=== PATIENT | female | born 1945 | race Caucasian/White ===

== ENCOUNTER 2022-03-14 13:35 | Outpatient (REF) | payer MEDICARE, SELFPAY ==
[2022-03-15 13:09] LABS: Influenza A PCR NEGATIVE (Negative); Influenza B PCR NEGATIVE (Negative); Resp Syncy Virus RNA Qual PCR NEGATIVE (Negative); SARS COV2 PCR INHOUSE NEGATIVE (Negative)
== END 2022-03-14 13:36 | disposition home or self-care (01) ==
LOC: HO.LNP 13:35
PROVIDERS: Visit Provider Hospitalist
DX: J02.9 Acute pharyngitis, unspecified (principal); R09.81 Nasal congestion; R51.9 Headache, unspecified; R05.9 Cough, unspecified; Z20.822 Contact with and (suspected) exposure to COVID-19
CPT/HCPCS: 0241U

== ENCOUNTER 2024-02-13 15:23 | Outpatient (AMB) | payer MEDICARE, SELFPAY ==
--- NOTE | 2024-02-13 15:13 | MHC.PC.OV ---
Vital Signs 02/13/24 15:45 Height 5 ft 1 in Weight 148 lb 6 oz BMI 28.0 BP 112/60 Blood Pressure Location Rt brachial Position Sitting Respiration 16 Pulse 99 Pulse Source Pulse Oximeter Temp 98.1 F Temp Source Oral Pulse Oximetry (%) 96 Oxygen Delivery Method Room Air Intake Visit Reasons: establish care Intake Note: New patient visit [facility] Required: No Allergies azithromycin Allergy (Intermediate, Verified 03/14/22 13:56) Swelling latex Allergy (Intermediate, Verified 03/14/22 13:55) Hives duloxetine [From Cymbalta] Allergy (Unknown, Verified 02/13/24 15:17) Unknown erythromycin base Allergy (Unknown, Verified 02/13/24 15:17) Unknown hydromorphone [From Dilaudid] Allergy (Unknown, Verified 02/13/24 15:17) Unknown Sulfa (Sulfonamide Antibiotics) Allergy (Unknown, Verified 02/13/24 15:17) Unknown nonsteriodal anti-inflammatory agents Allergy (Unknown, Uncoded 02/13/24 15:17) Unknown Medication List - Last Reconciled 02/13/24 by Jasmine Ye MD albuterol sulfate 90 mcg/actuation inhalation alprazolam 2 mg PO TID PRN ketoconazole 2% 1 appl topical neomycin-polymyxin B-dexameth 3.5mg/mL-10,000 unit/mL-0.1 % drps ophthalmic (eye) prednisolone acetate 1% 1 drp ophthalmic (eye) TID warfarin (Jantoven) mg PO Tobacco use date assessed: 02/13/24 Fall risk assessment: 2 + Falls in past year Last assessed Fall Risk: 02/13/24 Dental Screening Dental Screen Date: 02/13/24 Did you have a dental visit in the last 12 months?: No Did you have a dental problem in the last 6 months where you did not have access to dental care?: No Was dental information given to patient?: No (Has dentures) HPI HPI Comments History of Present Illness Details The patient is a 78 year old female with a past medical history of COPD, HLD, chronic pain, OA, DDD, fibromyalgia presenting for follow up Has had recurrent issues with bilateral ear pressure. Recurrent sinusitis. Uses claritin, nasal spray. Has seen ENT. Received allergy shots remotely. Not interested in pursuing. Normal sinus xray following treatment. Feels off balance OA, DDD, fibromyalgia: Basline. Left sided low back pain with radicular sympotms. Injections decrease pain levels. Intolerant to multiple medications. Has tried cymbalta, gabapentin, lyrica, NSAIDs. History of lumbar laminectomy~10 years ago. Improved for few years then last 3 years increased. Has seen rheumatology, ortho, NS. Saw [facility] for her knee. Receives injections ~2x/year. Saw in Sep 2023. Uses tylenol and topical lidocaine or bengay. Denies b/b incontinence, LE numbness, wekaness. Ongoing intermittent level left shoulder, neck, upper back and knee pain. history of left knee torn meniscus. Psych: Well controlled anxiety, depression. Follows with . Chronic fatigue. On clonazepam Heme/Onc h/o PE early , 2011. Lifelong AC with coumadin. Doesnt want NOAC. Chronically anemia. history of b12 deficiency. Recevies injections [facility] Medical History (Updated 02/19/24 @ 09:10 by Jasmine Ye MD) Vitamin D deficiency Thyroid function test abnormal Rosacea Pulmonary embolism Peripheral nerve disease Otalgia of right ear Osteoporosis Non-toxic multinodular goiter Irritable bowel syndrome Hypercholesteremia Gastroesophageal reflux disease Fibromyalgia Cobalamin deficiency Chronic pain Chronic obstructive lung disease Chronic anticoagulation Candidal intertrigo Asthma Arthritis Anxiety Allergic rhinitis Surgical History (Updated 02/13/24 @ 15:28 by Lavern Constantino CMA) H/O laminectomy History of ankle surgery Hx of appendectomy H/O laparoscopy Family History (Updated 02/13/24 @ 16:30 by Lavern Constantino CMA) Other FH: mental illness Social History Housing: Other (mobile home ) Patient Tobacco Use Status: Never used Tobacco e-Cigarette/Vaping Use: Never Used Cognitive needs: No Hearing needs: No Vision needs: Yes (issue with her eyes that's been unresolved) Questionnaire PHQ-9 Over the last 2 weeks, how often have you been bothered by any of the following problems? 1. Little interest or pleasure in doing things: more than half the days 2. Feeling down, depressed, or hopeless: more than half the days 3. Trouble falling or staying asleep, or sleeping too much: more than half the days 4. Feeling tired or having little energy: not at all 5. Poor appetite or overeating: not at all 6. Feeling bad about yourself - or that you are a failure or have let yourself or your family down: not at all 7. Trouble concentrating on things, such as reading the newspaper or watching television: not at all 8. Moving or speaking so slowly that other people could have noticed. Or the opposite - being so fidgety or restless that you have been moving around a lot more than usual: not at all 9. Thoughts that you would be better off or of hurting yourself in some way: not at all Total score: 6 Depression Screening Interpretation: Positive Depression Screening Follow-up: Existing condition Depression Screening Done: Yes 82804 - PHQ-9 Billing: Yes Source: Developed by Drs. Wesley Castillo, Gabby Cox, Joshua Perla and colleagues, with an educational shereen from [employer]. Thrive Questionnaire Date Thrive assessed: 02/13/24 I am a: Patient What is your living situation today?: I have a steady place to live Within the past 12 months, did the food you bought not last and you didn't have the money to get more?: Never true Within the past 12 months, did you worry whether your food would run out before you got money to buy more?: Never true Do you have trouble paying for medicines?: No Do you have trouble getting transportation to medical appointments?: No Do you have trouble paying your heating and electricity bill?: No Do you have trouble taking care of your child, family member or friend?: No Do you have trouble with day-to-day activities such as bathing, preparing meals, shopping, managing finances, etc.?: No Are you currently unemployed and looking for a job?: No Are you interested in more education?: No Please select the resources that you would like help with: None Currently or been in a relationship where the following occur: no concerns reported THRIVE Score: 0 FLORA-7 AMB Questionnaire FLORA-7 Date FLORA - 7 assessed: 02/13/24 Feeling nervous, anxious, or on edge: 0 = Not at all Not being able to stop or control worryin = Not at all Worrying too much about different things: 0 = Not at all Trouble relaxin = Not at all Being so restless that it is hard to sit still: 0 = Not at all Becoming easily annoyed or irritable: 0 = Not at all Feeling afraid as if something awful might happen: 0 = Not at all Total FLORA-7 score (0-4 normal; 5-9 mild; 10-14 moderate; 15-21 severe): 0 Source: Developed by Drs. Wesley Castillo, Gabby Cox, Joshua Perla and colleagues, with an educational shereen from [employer]. FLORA-7 Assessment Billing FLORA-7 Assessment Tool: FLORA-7 Assessment 89994 Review of Systems Const Details: see hpi Physical exam (Primary Care) Vital Signs: Last Vital Signs Temp 98.1 F 02/13/24 15:45 Pulse 99 02/13/24 15:45 Resp 16 02/13/24 15:45 BP 112/60 02/13/24 15:45 Pulse Ox 96 02/13/24 15:45 Oxygen Delivery Method Room Air 02/13/24 15:45 PHYSICAL EXAM: GENERAL: Alert and oriented x 3. NAD EYES: EOMI. Anicteric. HENT: Periorbital edema, boggy nasal mucosa. LUNGS: Clear to auscultation bilaterally. CARDIOVASCULAR: Regular rate and rhythm. No murmur. No JVD. ABDOMEN: Soft, non-tender +bs EXTREMITIES: No edema. Non-tender. SKIN: No rashes or lesions. Warm. NEUROLOGIC: No focal neurological deficits. CN II-XII grossly intact PSYCHIATRIC: Cooperative. Appropriate mood and affect BMI result Body Mass Index 28.0 Tobacco/Smoking Status: Tobacco use Status Tobacco use date assessed 02/13/24 02/13/24 15:51 Patient Tobacco Use Status Never used Tobacco 02/13/24 15:28 e-Cigarette/Vaping Use Never Used 02/13/24 15:51 PHQ-9: PHQ-9 Score PHQ-9: Total score 6 02/13/24 16:31 Depression Screening Interpretation: Positive Depression Screening Follow-up: Existing condition Thrive Assessment: Date of Thrive Assessment Date Thrive assessed 02/13/24 02/13/24 16:31 Currently or been in a relationship where the following occur: no concerns reported Assessment and Plan Assessment & Plan (1) Osteoarthritis: Comment: continue current medications Code(s): M19.90 - Unspecified osteoarthritis, unspecified site Qualifiers: Osteoarthritis location: multiple joints Osteoarthritis type: primary Qualified Code(s): M15.9 - Polyosteoarthritis, unspecified (2) Polyarthralgia: Code(s): M25.50 - Pain in unspecified joint (3) DDD (degenerative disc disease), lumbar: Comment: stable Code(s): M51.36 - Other intervertebral disc degeneration, lumbar region (4) Allergic rhinitis: Code(s): J30.9 - Allergic rhinitis, unspecified Qualifiers: Allergic rhinitis trigger: unspecified Allergic rhinitis seasonality: seasonal Qualified Code(s): J30.2 - Other seasonal allergic rhinitis Medications: New amoxicillin-pot clavulanate 875-125 mg 1 tab PO BID 14 days 28 tabs 0RF methylprednisolone PO PER PKG DIR for 6 days 21 ea 0RF Coding Level of Care Code Est Pt Level 5 (87523) Complex EM visit Add On G2211 Diagnoses Primary osteoarthritis involving multiple joints M15.9 Osteoarthritis location: multiple joints Osteoarthritis type: primary Polyarthralgia M25.50 DDD (degenerative disc disease), lumbar M51.36 Seasonal allergic rhinitis, unspecified trigger J30.2 Allergic rhinitis trigger: unspecified Allergic rhinitis seasonality: seasonal Additional Codes FLORA-7 Assessment Billing - FLORA-7 Assessment Tool: FLORA-7 Assessment 81252 ([id number])
[2024-02-13 15:45] VITALS: BP 112/60; PULSE 99; RESP 16; TEMP 36.7; O2SAT 96; BMI 28.0
== END 2024-02-13 16:26 | disposition home or self-care (01) ==
PROVIDERS: PCP Internal Medicine; Visit Provider Internal Medicine
DX: M15.9 Polyosteoarthritis, unspecified (principal); M25.50 Pain in unspecified joint; M51.36 Other intervertebral disc degeneration, lumbar region; J30.2 Other seasonal allergic rhinitis
CPT/HCPCS: 99214; G2211

== ENCOUNTER 2024-02-19 15:03 | Outpatient (AMB) | payer MEDICARE, SELFPAY ==
--- NOTE | 2024-02-19 15:04 | MHC.PC.OV ---
Vital Signs 02/19/24 15:07 Height 5 ft 1 in Weight 146 lb 6 oz BMI 27.7 BP 118/76 Blood Pressure Location Lt brachial Position Sitting Respiration 16 Pulse 87 Pulse Source Pulse Oximeter Pulse Oximetry (%) 98 Oxygen Delivery Method Room Air Intake Visit Reasons: f/u medication check up Intake Note: Follow up. Asking if she should still be on B12 injections. Allergies azithromycin Allergy (Intermediate, Verified 02/19/24 15:04) Swelling latex Allergy (Intermediate, Verified 03/14/22 13:55) Hives duloxetine [From Cymbalta] Allergy (Unknown, Verified 02/13/24 15:17) Unknown erythromycin base Allergy (Unknown, Verified 02/13/24 15:17) Unknown hydromorphone [From Dilaudid] Allergy (Unknown, Verified 02/13/24 15:17) Unknown Sulfa (Sulfonamide Antibiotics) Allergy (Unknown, Verified 02/13/24 15:17) Unknown nonsteriodal anti-inflammatory agents Allergy (Unknown, Uncoded 02/13/24 15:17) Unknown Medication List - Last Reconciled 02/19/24 by Jasmine Ye MD albuterol sulfate 90 mcg/actuation inhalation alprazolam 2 mg PO TID PRN amoxicillin-pot clavulanate 875-125 mg 1 tab PO BID 14 days ketotifen fumarate 0.025%(0.035%) (Allergy Eye (ketotifen)) 1 drp ophthalmic (eye) BID PRN 30 days methylprednisolone PO PER PKG DIR for 6 days warfarin (Jantoven) mg PO Tobacco use date assessed: 02/13/24 Fall risk assessment: No Falls in past year Last assessed Fall Risk: 02/19/24 Dental Screening Dental Screen Date: 02/13/24 HPI HPI Comments History of Present Illness Details The patient is a 78 year old female with a past medical history of COPD, HLD, chronic pain, OA, DDD, fibromyalgia presenting for follow up Has had recurrent issues with bilateral ear pressure. Recurrent sinusitis. Uses claritin, nasal spray. Has seen ENT. Received allergy shots remotely. Not interested in pursuing. Normal sinus xray following treatment. Feels off balance. Last visit was having issues with periorbital edema, eye itching watering and redness. One day left on solumedrol course with marked improvement in symptoms. Continues course of augmentin. OA, DDD, fibromyalgia: Basline. Left sided low back pain with radicular sympotms. Injections decrease pain levels. Intolerant to multiple medications. Has tried cymbalta, gabapentin, lyrica, NSAIDs. History of lumbar laminectomy~10 years ago. Improved for few years then last 3 years increased. Has seen rheumatology, ortho, NS. Saw [facility] for her knee. Receives injections ~2x/year. Saw in Sep 2023. Uses tylenol and topical lidocaine or bengay. Denies b/b incontinence, LE numbness, wekaness. Ongoing intermittent level left shoulder, neck, upper back and knee pain. history of left knee torn meniscus. Psych: Well controlled anxiety, depression. Follows with . Chronic fatigue. On clonazepam Heme/Onc h/o PE early , 2011. Lifelong AC with coumadin. Doesnt want NOAC. Chronically anemia. history of b12 deficiency. Recevies injections [facility] Medical History (Updated 02/21/24 @ 16:35 by Jasmine Ye MD) Vitamin D deficiency Thyroid function test abnormal Rosacea Pulmonary embolism Peripheral nerve disease Otalgia of right ear Osteoporosis Non-toxic multinodular goiter Irritable bowel syndrome Hypercholesteremia Gastroesophageal reflux disease Fibromyalgia Cobalamin deficiency Chronic pain Chronic obstructive lung disease Chronic anticoagulation Candidal intertrigo Asthma Arthritis Anxiety Allergic rhinitis Surgical History (Updated 02/13/24 @ 15:28 by Lavern Constantino CMA) H/O laminectomy History of ankle surgery Hx of appendectomy H/O laparoscopy Family History (Updated 02/13/24 @ 16:30 by Lavern Constantino CMA) Other FH: mental illness Social History Housing: Other (mobile home ) Patient Tobacco Use Status: Never used Tobacco e-Cigarette/Vaping Use: Never Used Cognitive needs: No Hearing needs: No Vision needs: Yes (issue with her eyes that's been unresolved) Questionnaire Thrive Questionnaire Date Thrive assessed: 02/13/24 FLORA-7 AMB Questionnaire FLORA-7 Date FLORA - 7 assessed: 02/13/24 Source: Developed by Drs. Wesley Castillo, Gabby Cox, Joshua Perla and colleagues, with an educational shereen from [employer]. Review of Systems Const Details: see hpi Physical exam (Primary Care) Vital Signs: Last Vital Signs Pulse 87 02/19/24 15:07 Resp 16 02/19/24 15:07 BP 118/76 02/19/24 15:07 Pulse Ox 98 02/19/24 15:07 Oxygen Delivery Method Room Air 02/19/24 15:07 PHYSICAL EXAM: GENERAL: Alert and oriented x 3. NAD EYES: EOMI. Anicteric. HENT: Moist mucous membranes. No scleral icterus. No cervical lymphadenopathy. LUNGS: Clear to auscultation bilaterally. CARDIOVASCULAR: Regular rate and rhythm. No murmur. No JVD. ABDOMEN: Soft, non-tender +bs EXTREMITIES: No edema. Non-tender. SKIN: No rashes or lesions. Warm. NEUROLOGIC: No focal neurological deficits. PSYCHIATRIC: Cooperative. Appropriate mood and affect BMI result Body Mass Index 27.7 Tobacco/Smoking Status: Tobacco use Status Tobacco use date assessed 02/13/24 02/19/24 15:04 Patient Tobacco Use Status Never used Tobacco 02/19/24 15:04 e-Cigarette/Vaping Use Never Used 02/19/24 15:04 Thrive Assessment: Date of Thrive Assessment Date Thrive assessed 02/13/24 02/19/24 15:04 Assessment and Plan Assessment & Plan (1) Cobalamin deficiency: Comment: check b12 prior to restarting injections Code(s): E53.8 - Deficiency of other specified B group vitamins (2) Thyroid function test abnormal: Code(s): R94.6 - Abnormal results of thyroid function studies (3) Hypercholesteremia: Code(s): E78.00 - Pure hypercholesterolemia, unspecified (4) Irritable bowel syndrome: Code(s): K58.9 - Irritable bowel syndrome without diarrhea (5) DDD (degenerative disc disease), lumbar: Comment: stable Code(s): M51.36 - Other intervertebral disc degeneration, lumbar region Orders: Orders Vitamin B12 02/19/24 E53.8 - Deficiency of other specified B group vitamins Medications: New ketotifen fumarate 0.025%(0.035%) (Allergy Eye (ketotifen)) administer at least 8 hours apart 1 drp ophthalmic (eye) BID 30 days PRN 5 mL 3RF allergy symptoms Coding Level of Care Code Tele Est Pt Level 3 (15095) Diagnoses Cobalamin deficiency E53.8 Thyroid function test abnormal R94.6 Hypercholesteremia E78.00 Irritable bowel syndrome K58.9 DDD (degenerative disc disease), lumbar M51.36
[2024-02-19 15:07] VITALS: BP 118/76; PULSE 87; RESP 16; O2SAT 98; BMI 27.7
== END 2024-02-19 15:57 | disposition home or self-care (01) ==
PROVIDERS: PCP Internal Medicine; Visit Provider Internal Medicine
DX: E53.8 Deficiency of other specified B group vitamins (principal); R94.6 Abnormal results of thyroid function studies; E78.00 Pure hypercholesterolemia, unspecified; K58.9 Irritable bowel syndrome, unspecified; M51.36 Other intervertebral disc degeneration, lumbar region
CPT/HCPCS: 99213

== ENCOUNTER 2024-03-19 14:18 | Outpatient (AMB) | payer MEDICARE, SELFPAY ==
--- NOTE | 2024-03-19 14:33 | A.OFFPC_ITS ---
Vital Signs 03/19/24 14:37 Height 5 ft 1 in Weight 144 lb 6 oz BMI 27.3 BP 132/72 Blood Pressure Location Lt brachial Position Sitting Respiration 14 Pulse 89 Pulse Source Pulse Oximeter Temp 98 F Temp Source Oral Pulse Oximetry (%) 97 Oxygen Delivery Method Room Air Intake Visit Reasons: possible infection Intake Note: F/U on sinus infection and allergies. Allergies azithromycin Allergy (Intermediate, Verified 02/19/24 15:04) Swelling latex Allergy (Intermediate, Verified 03/14/22 13:55) Hives duloxetine [From Cymbalta] Allergy (Unknown, Verified 02/13/24 15:17) Unknown erythromycin base Allergy (Unknown, Verified 02/13/24 15:17) Unknown hydromorphone [From Dilaudid] Allergy (Unknown, Verified 02/13/24 15:17) Unknown Sulfa (Sulfonamide Antibiotics) Allergy (Unknown, Verified 02/13/24 15:17) Unknown nonsteriodal anti-inflammatory agents Allergy (Unknown, Uncoded 02/13/24 15:17) Unknown Medication List - Last Reconciled 03/21/24 by Jasmine Ye MD albuterol sulfate 90 mcg/actuation inhalation alprazolam 2 mg PO TID PRN ketotifen fumarate 0.025%(0.035%) (Allergy Eye (ketotifen)) 1 drp ophthalmic (eye) BID PRN 30 days warfarin (Jantoven) mg PO Tobacco use date assessed: 02/13/24 Fall risk assessment: 1 Fall in past year Last assessed Fall Risk: 03/19/24 Dental Screening Dental Screen Date: 02/13/24 HPI HPI Comments History of Present Illness Details The patient is a 79 year old female with a past medical history of COPD, HLD, chronic pain, OA, DDD, fibromyalgia presenting for follow up Has had recurrent issues with bilateral ear pressure. Recurrent sinusitis. Had considerable sinus pressure and pain earlier this week. went to urgent care. did not receive antibiotic. some interval improvement. at baseline Uses claritin, nasal spray. Has seen ENT. Received allergy shots remotely. Not interested in pursuing. Recently responded well to medrol for periorbital edema though does not like side effects of steroids. OA, DDD, fibromyalgia: Baseline. Left sided low back pain with radicular sympotms. Injections decrease pain levels. Intolerant to multiple medications. Has tried cymbalta, gabapentin, lyrica, NSAIDs. History of lumbar laminectomy~10 years ago. Improved for few years then last 3 years increased. Has seen rheumatology, ortho, NS. Saw [facility] for her knee. Receives injections ~2x/year. Saw in Sep 2023. Uses tylenol and topical lidocaine or bengay. Denies b/b incontinence, LE numbness, wekaness. Ongoing intermittent level left shoulder, neck, upper back and knee pain. history of left knee torn meniscus. Psych: Well controlled anxiety, depression. Follows with . Chronic fatigue. On clonazepam Heme/Onc h/o PE early , 2011. Lifelong AC with coumadin. Doesnt want NOAC. Chronically anemia. history of b12 deficiency. Recevies injections. did not receive b12 level from [facility]. [facility] Medical History (Updated 03/21/24 @ 10:05 by Jasmine Ye MD) Vitamin D deficiency Thyroid function test abnormal Rosacea Pulmonary embolism Peripheral nerve disease Otalgia of right ear Osteoporosis Non-toxic multinodular goiter Irritable bowel syndrome Hypercholesteremia Gastroesophageal reflux disease Fibromyalgia Cobalamin deficiency Chronic pain Chronic obstructive lung disease Chronic anticoagulation Candidal intertrigo Asthma Arthritis Anxiety Allergic rhinitis Surgical History (Updated 02/13/24 @ 15:28 by Lavern Constantino CMA) H/O laminectomy History of ankle surgery Hx of appendectomy H/O laparoscopy Family History (Updated 02/13/24 @ 16:30 by Lavern Constantino CMA) Other FH: mental illness Social History Housing: Other (mobile home ) Patient Tobacco Use Status: Never used Tobacco e-Cigarette/Vaping Use: Never Used service: No Current occupational status: retired Cognitive needs: No Hearing needs: No Vision needs: Yes (issue with her eyes that's been unresolved) Questionnaire Thrive Questionnaire Date Thrive assessed: 02/13/24 AUDIT C Alcohol Use Questionnaire (AUDIT-C) 1. How often do you have a drink containing alcohol?: Never 3. How often do you have six or more drinks on one occasion?: Never Total Score: 0 FLORA-7 AMB Questionnaire FLORA-7 Date FLORA - 7 assessed: 02/13/24 Source: Developed by Drs. Wesley Castillo, Gabby Cox, Joshua Perla and colleagues, with an educational shereen from [employer]. ACT Questionnaire In the past 4 weeks, how much of the time did your asthma keep you from getting as much done at work, school or at home?: Some of the time During the past 4 weeks, how often have you had shortness of breath?: 3-6 times a week During the past 4 weeks, how often did your asthma symptoms wake you up at night or earlier than usual in the morning?: Once or twice per week During the past 4 weeks, how often have you had to use your rescue inhaler or nebulizer medication?: 2-3 times a week How would you rate your asthma control during the past 4 weeks?: Well controlled Score: 17 Review of Systems Const Details: see hpi Physical exam (Primary Care) Vital Signs: Last Vital Signs Temp 98 F 03/19/24 14:37 Pulse 89 03/19/24 14:37 Resp 14 03/19/24 14:37 BP 132/72 03/19/24 14:37 Pulse Ox 97 03/19/24 14:37 Oxygen Delivery Method Room Air 03/19/24 14:37 PHYSICAL EXAM: GENERAL: Alert and oriented x 3. NAD EYES: EOMI. Anicteric. HENT: Moist mucous membranes. No scleral icterus. No cervical lymphadenopathy. LUNGS: Clear to auscultation bilaterally. CARDIOVASCULAR: Regular rate and rhythm. No murmur. No JVD. ABDOMEN: Soft, non-tender +bs EXTREMITIES: No edema. Non-tender. SKIN: No rashes or lesions. Warm. NEUROLOGIC: No focal neurological deficits. CN II-XII grossly intact PSYCHIATRIC: Cooperative. Appropriate mood and affect BMI result Body Mass Index 27.3 Tobacco/Smoking Status: Tobacco use Status Tobacco use date assessed 02/13/24 03/19/24 14:46 Patient Tobacco Use Status Never used Tobacco 03/19/24 14:46 e-Cigarette/Vaping Use Never Used 03/19/24 14:46 Thrive Assessment: Date of Thrive Assessment Date Thrive assessed 02/13/24 03/19/24 14:46 Assessment and Plan Assessment & Plan (1) Allergic rhinitis: Comment: continue daily anithistamine. can add sudafed or afrin or worst days temporarily. Encouraged to consider shots. Can order antibiotics as needed for acute prolonged flare in symptoms Code(s): J30.9 - Allergic rhinitis, unspecified Qualifiers: Allergic rhinitis seasonality: seasonal Allergic rhinitis trigger: unspecified Qualified Code(s): J30.2 - Other seasonal allergic rhinitis (2) Fibromyalgia: Code(s): M79.7 - Fibromyalgia Plan: stable (3) Polyarthralgia: Code(s): M25.50 - Pain in unspecified joint Orders: Orders Vitamin B12 03/19/24 E53.8 - Deficiency of other specified B group vitamins, E78.00 - Pure hypercholesterolemia, unspecified, R94.6 - Abnormal results of thyroid function studies Comprehensive [place]. Panel Fast 03/19/24 E53.8 - Deficiency of other specified B group vitamins, E78.00 - Pure hypercholesterolemia, unspecified, R94.6 - Abnormal results of thyroid function studies Hemoglobin A1c 03/19/24 E53.8 - Deficiency of other specified B group vitamins, E78.00 - Pure hypercholesterolemia, unspecified, R94.6 - Abnormal results of thyroid function studies Lipid Panel 03/19/24 E53.8 - Deficiency of other specified B group vitamins, E78.00 - Pure hypercholesterolemia, unspecified, R94.6 - Abnormal results of thyroid function studies Thyroid Stimulating Hormone 03/19/24 E53.8 - Deficiency of other specified B group vitamins, E78.00 - Pure hypercholesterolemia, unspecified, R94.6 - Abnormal results of thyroid function studies Coding Level of Care Code Est Pt Level 4 (08127) Diagnoses Seasonal allergic rhinitis, unspecified trigger J30.2 Allergic rhinitis seasonality: seasonal Allergic rhinitis trigger: unspecified Fibromyalgia M79.7 Polyarthralgia M25.50
[2024-03-19 14:37] VITALS: BP 132/72; PULSE 89; RESP 14; TEMP 36.6; O2SAT 97; BMI 27.3
== END 2024-03-19 15:44 | disposition home or self-care (01) ==
PROVIDERS: PCP Internal Medicine; Visit Provider Internal Medicine
DX: J30.2 Other seasonal allergic rhinitis (principal); M79.7 Fibromyalgia; M25.50 Pain in unspecified joint
CPT/HCPCS: 99214

== ENCOUNTER 2024-04-27 15:18 | Outpatient (AMB) | payer MEDICARE, SELFPAY ==
--- NOTE | 2024-04-27 15:23 | MHC.PC.OV ---
Vital Signs 04/27/24 15:25 Height 5 ft 1 in Weight 145 lb BMI 27.4 BP 144/60 H Blood Pressure Location Lt brachial Position Sitting Pulse 84 Pulse Source Pulse Oximeter Pulse Oximetry (%) 99 Oxygen Delivery Method Room Air Intake Visit Reasons: sinus infection? Intake Note: Patient is here with her spouse. Patient reports sinus pressure and pain began yesterday. Patient reports sinus congestion and aching from the neck up. Patient reports watering eyes and overall discomfort. [employer] Services Librarian Required: No Accompanied by: Self / Same As Patient Allergies azithromycin Allergy (Intermediate, Verified 04/27/24 15:30) Swelling latex Allergy (Intermediate, Verified 04/27/24 15:30) Hives duloxetine [From Cymbalta] Allergy (Unknown, Verified 04/27/24 15:30) Unknown erythromycin base Allergy (Unknown, Verified 04/27/24 15:30) Unknown hydromorphone [From Dilaudid] Allergy (Unknown, Verified 04/27/24 15:30) Unknown Sulfa (Sulfonamide Antibiotics) Allergy (Unknown, Verified 04/27/24 15:30) Unknown nonsteriodal anti-inflammatory agents Allergy (Unknown, Uncoded 04/27/24 15:30) Unknown Tobacco use date assessed: 02/13/24 Dental Screening Dental Screen Date: 02/13/24 HPI HPI Comments History of Present Illness Details The patient is a 79 year old female with a past medical history of COPD, HLD, chronic pain, OA, DDD, fibromyalgia presenting for follow up Has had recurrent issues with bilateral ear pressure. Recurrent sinusitis. Had considerable sinus pressure and pain worsening over the past two weeks. Using OTC meds without significant relief OA, DDD, fibromyalgia: Baseline. Left sided low back pain with radicular sympotms. Injections decrease pain levels. Intolerant to multiple medications. Has tried cymbalta, gabapentin, lyrica, NSAIDs. History of lumbar laminectomy~10 years ago. Improved for few years then last 3 years increased. Has seen rheumatology, ortho, NS. Saw NISSA for her knee. Receives injections ~2x/year. Saw in Sep 2023. Uses tylenol and topical lidocaine or bengay. Denies b/b incontinence, LE numbness, wekaness. Ongoing intermittent level left shoulder, neck, upper back and knee pain. history of left knee torn meniscus. Psych: Well controlled anxiety, depression. Follows with . Chronic fatigue. On clonazepam Heme/Onc h/o PE early , 2011. Lifelong AC with coumadin. Doesnt want NOAC. Chronically anemia. history of b12 deficiency. Recevies injections. did not receive b12 level from [facility]. ROS see HPI PHYSICAL EXAM: GENERAL: Alert and oriented x 3. NAD EYES: EOMI. Anicteric. HENT: Moist mucous membranes. Bilateral clear middle ear effusions. Mild scleral injection. Maxillary sinuses tender to palpation LUNGS: Clear to auscultation bilaterally. CARDIOVASCULAR: Regular rate and rhythm. No murmur. No JVD. ABDOMEN: Soft, non-tender +bs EXTREMITIES: No edema. Non-tender. SKIN: No rashes or lesions. Warm. NEUROLOGIC: No focal neurological deficits. CN II-XII grossly intact PSYCHIATRIC: Cooperative. Appropriate mood and affect [facility] Medical History (Updated 03/21/24 @ 10:05 by Jasmine Ye MD) Vitamin D deficiency Thyroid function test abnormal Rosacea Pulmonary embolism Peripheral nerve disease Otalgia of right ear Osteoporosis Non-toxic multinodular goiter Irritable bowel syndrome Hypercholesteremia Gastroesophageal reflux disease Fibromyalgia Cobalamin deficiency Chronic pain Chronic obstructive lung disease Chronic anticoagulation Candidal intertrigo Asthma Arthritis Anxiety Allergic rhinitis Surgical History (Updated 02/13/24 @ 15:28 by Lavern Constantino CMA) H/O laminectomy History of ankle surgery Hx of appendectomy H/O laparoscopy Family History (Updated 02/13/24 @ 16:30 by Lavern Constantino CMA) Other FH: mental illness Social History Housing: Other (mobile home ) Patient Tobacco Use Status: Never used Tobacco e-Cigarette/Vaping Use: Never Used service: No Current occupational status: retired Cognitive needs: No Hearing needs: No Vision needs: Yes (issue with her eyes that's been unresolved) Questionnaire Thrive Questionnaire Date Thrive assessed: 02/13/24 FLORA-7 AMB Questionnaire FLORA-7 Date FLORA - 7 assessed: 02/13/24 Source: Developed by Drs. Wesley Castillo, Gabby Cox, Joshua Perla and colleagues, with an educational shereen from [employer]. Physical exam (Primary Care) Vital Signs: Last Vital Signs Pulse 84 04/27/24 15:25 BP 144/60 H 04/27/24 15:25 Pulse Ox 99 04/27/24 15:25 Oxygen Delivery Method Room Air 04/27/24 15:25 BMI result Body Mass Index 27.4 Tobacco/Smoking Status: Tobacco use Status Tobacco use date assessed 02/13/24 04/27/24 15:24 Patient Tobacco Use Status Never used Tobacco 04/27/24 15:24 e-Cigarette/Vaping Use Never Used 04/27/24 15:24 Thrive Assessment: Date of Thrive Assessment Date Thrive assessed 02/13/24 04/27/24 15:24 Assessment and Plan Assessment & Plan (1) Sinus congestion: Code(s): R09.81 - Nasal congestion Plan: Continue OTC meds Consider A&I consult for consideration of allergy shots Doxycycline x 10 days Medications: New doxycycline hyclate 100 mg PO BID 20 tabs 0RF Coding Level of Care Code Est Pt Level 4 (62044) Diagnoses Sinus congestion R09.81
[2024-04-27 15:25] VITALS: BP 144/60; PULSE 84; O2SAT 99; BMI 27.4
== END 2024-04-27 15:47 | disposition home or self-care (01) ==
PROVIDERS: PCP Internal Medicine; Visit Provider Internal Medicine
DX: R09.81 Nasal congestion (principal)
CPT/HCPCS: 99214